=== PATIENT | male | born 1985 | race Hispanic/Latino ===

== ENCOUNTER 2019-10-01 08:01 | Emergency (ER) | payer SELFPAY ==
[2019-10-01] MEDS ORDERED: KETOROLAC TROMETHAMINE INJ 30 MG/ML VIAL IM ONE (08:08)
--- NOTE | 2019-10-01 08:12 | ED.PDOC ---
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 no dysuria, no blood in urine, no history of kidney tones, patient does not appear in any distress, no trauma patient denies cigarettes, alcohol or drugs. patient stated that pain is worse when he moves and is 8/10 in intensity patient can walk with a steady gait - History of Present Illness Timing/Duration: days - 3 days Quality/Severity: moderate Back Pain Location: paraspinous muscles Method of Injury/Prior Injury: other - no irradiation Improving Factors: nothing Worsening Factors: nothing Associated Symptoms: denies symptoms Allergies/Adverse Reactions: Allergies NO KNOWN ALLERGY Allergy (Verified 10/01/19 08:15) Home Medications: Ambulatory Orders Acetaminophen W/ Codeine [Tylenol W/ CODEINE #3] 1 ea PO Q6HR #20 10/01/19 Cyclobenzaprine HCl [Flexeril] 10 mg PO Q6HR #20 tab 10/01/19 Review of Systems - Review of Systems Constitutional: Denies: chills, diaphoresis, fever, malaise, weakness EENTM: Denies: eye pain, blurred vision, tearing, double vision, ear pain, ear discharge, nose pain, nose congestion, throat pain, throat swelling, mouth swelling Respiratory: Denies: cough, orthopnea, short of breath, wheezing Cardiology: Denies: chest pain, edema, palpitations, syncope Gastrointestinal/Abdominal: Denies: abdominal pain, constipation, diarrhea, nausea, vomiting Genitourinary: Denies: discharge, dysuria, frequency, hematuria, pain Musculoskeletal: Denies: back pain, gout, joint pain, joint swelling, muscle pain, muscle stiffness, neck pain Skin: Denies: change in color, change in hair/nails, dryness, lesions, lumps, rash Neurological: Denies: anxiety, depressed, emotional problems, headache, numbness, paresthesia, pre-existing deficit, seizure, tingling, tremors, weakness Endocrine: Denies: excessive sweating, flushing, intolerance to cold, intolerance to heat, increased hunger, increased thirst, increased urine, unexplained weight gain, unexplained weight loss Hematologic/Lymphatic: Denies: anemia, blood clots, easy bleeding, easy bruising, swollen glands Family Medical History - Family History Mother Family History: No Known Living Status: Still Living Physical Exam - Physical Exam General Appearance: Alert, Well Developed, Well Groomed, Well Hydrated, Well Nourished Eyes, Ears, Nose, Throat Exam: normal ENT inspection, TMs normal, pharynx normal Neck Exam: non-tender, full range of motion, normal alignment, normal inspection Cardiovascular/Respiratory: regular rate, rhythm, no M/R/G, normal peripheral pulses, no JVD, normal breath sounds Peripheral Pulses: radial,right: 2+, radial,left: 2+ Gastrointestinal/Abdominal: normal bowel sounds, non tender, soft, no organomegaly, no pulsatile mass Back Exam: no CVA tenderness, no vertebral tenderness, CVA tenderness (R) - right paraspinal pain, no cva tenderness, no acute abdomen, other - right Extremity Exam: no evidence of injury, normal range of motion, non-tender Neurologic: control room agent II-XII nml as tested, no motor/sensory deficits, alert, normal mood/affect, oriented x 3 Skin Exam: normal color Progress - Progress Progress: 10/01/19 08:30 this is a patient that presents with right paraspinal pain, i doubt kidney stone, since this pain is worse with movement and no urinary symptoms, patient is a electrical construction project manager, 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 I thinking that this pain is more muscular, will get urine and if hematuria then I will order a abdomino pelvic ct stone protocol 10/01/19 08:33 no blood present in urine, this paitent has none of the red flags for cord compression, no urinary retention, or incontinence, no trauma, no fever, no decrease sensation in the saddle area, no tingling or numbness. patient will be discharge home with tylenol #3 and flexeril Departure - Departure Clinical Impression: Musculoskeletal back pain Disposition: Discharge to Home or Self Care Condition: Fair Instructions: Muscle and Bone Pain (DC) Activity: as per physical therapy Prescriptions: Acetaminophen W/ Codeine [Tylenol W/ CODEINE #3] 1 ea PO Q6HR #20 Cyclobenzaprine HCl [Flexeril] 10 mg PO Q6HR #20 tab Home Medications: Ambulatory Orders Acetaminophen W/ Codeine [Tylenol W/ CODEINE #3] 1 ea PO Q6HR #20 10/01/19 Cyclobenzaprine HCl [Flexeril] 10 mg PO Q6HR #20 tab 10/01/19 Additional Instructions: alternate between ice and warm. return to the er if fever, chills, back pain, numbness in the lower back, unable to walk due to back pain, changes in bowel habits, urinary retention or incontinence
[2019-10-01 08:15] VITALS: BP 143/93; TEMP 97; O2SAT 99
[2019-10-01] MEDS ORDERED: KETOROLAC TROMETHAMINE INJ 30 MG/ML VIAL IV ONE (08:21)
== END 2019-10-01 08:45 | disposition home or self-care (01) ==
LOC: ER 08:01
DX: M54.9 Dorsalgia, unspecified (principal); R10.9 Unspecified abdominal pain
CPT/HCPCS: 81001; J1885